=== PATIENT | female | born 1975 | race Caucasian/White ===

== ENCOUNTER 2020-09-23 14:49 | Emergency (ER) | payer OTHER ==
[2020-09-23 16:16] LABS: HEMOGLOBIN 12.9 gm/dl (12.3-15.3); RED BLOOD COUNT 4.33 M/UL (4.00-5.10); WHITE BLOOD COUNT 12.9 K/UL (4.5-11.0)
[2020-09-23 16:34] LABS: BUN/CREATININE RATIO 8 (0-10)
== END 2020-09-23 16:55 | disposition home or self-care (01) ==
LOC: ER1 14:49
PROVIDERS: Physician Assistant
DX: R10.30 Lower abdominal pain, unspecified (principal); R11.10 Vomiting, unspecified; F17.200 Nicotine dependence, unspecified, uncomplicated; Z88.2 Allergy status to sulfonamides; Z88.0 Allergy status to penicillin
CPT/HCPCS: 80053; 81001; 84703; 85025; 99284

== ENCOUNTER 2020-09-23 23:09 | Emergency (ER) | payer OTHER ==
[2020-09-24 00:24] LABS: HEMOGLOBIN 13.4 gm/dl (12.3-15.3); RED BLOOD COUNT 4.58 M/UL (4.00-5.10)
[2020-09-24 00:42] LABS: BUN/CREATININE RATIO 10 (0-10)
== END 2020-09-24 02:52 | disposition home or self-care (01) ==
LOC: ER1 23:09
PROVIDERS: Family Medicine
DX: R10.9 Unspecified abdominal pain (principal); H92.01 Otalgia, right ear; F17.210 Nicotine dependence, cigarettes, uncomplicated; Z88.0 Allergy status to penicillin; Z88.2 Allergy status to sulfonamides
CPT/HCPCS: 80053; 81001; 83690; 85025; 96374; 96375; 99284; J2270; J2405; Q9967

== ENCOUNTER 2020-12-27 01:51 | Emergency (ER) | payer OTHER | END 2020-12-27 03:15 | disposition home or self-care (01) | LOC: ER1 01:51 | DX: R44.3 Hallucinations, unspecified (principal); Z90.49 Acquired absence of other specified parts of digestive tract; I10 Essential (primary) hypertension; Z88.0 Allergy status to penicillin; Z88.2 Allergy status to sulfonamides | CPT/HCPCS: 99284 ==

== ENCOUNTER → 2021-01-30 | Outpatient (CLI) | payer OTHER ==
[~2021-01-30] MED LIST: COLACE100 MG PO; PERCOCET 5/325 T1 EA PO
[2021-01-30 13:25] LABS: RED BLOOD COUNT 3.96 M/UL (4.00-5.10); WHITE BLOOD COUNT 9.9 K/UL (4.5-11.0)
== END ==
LOC: OPSV2 12:23
PROVIDERS: Obstetrics & Gynecology
DX: Z01.818 Encounter for other preprocedural examination (principal); N93.9 Abnormal uterine and vaginal bleeding, unspecified; Z88.0 Allergy status to penicillin; Z88.2 Allergy status to sulfonamides; Z88.8 Allergy status to other drugs, medicaments and biological substances
CPT/HCPCS: 81001; 85025; 93005